=== PATIENT | male | born 2000 | race Two or more races ===

== ENCOUNTER 2020-07-04 20:52 | Emergency (ER) | payer BC, MEDICAID, OTHER ==
[~2020-07-04] VITALS: Ht 188 cm; Wt 133.4 kg
[2020-07-04] MEDS ORDERED: ACETAMINOPHEN 500 MG TABLET PO ONE (22:00)
[2020-07-04] MEDS ORDERED: ONDANSETRON ODT 4 MG PO ONE (22:00)
[2020-07-04] MEDS ORDERED: ACETAMINOPHEN 500 MG TABLET ONE (22:21)
[2020-07-04] MEDS ORDERED: ONDANSETRON ODT 4 MG ONE (22:22)
[2020-07-04 22:23] LABS: ALBUMIN 3.6 g/dL (3.4-5.0); ANION GAP 5 mmol/L (5-15); CALCIUM 8.6 mg/dL (8.5-10.1); CHLORIDE 104 mmol/L (98-107); CREATININE 1.06 mg/dL (0.7-1.3)
--- NOTE | 2020-07-04 22:26 | NUR ---
PT MEDICATED PER EMAR. PT RESTING IN BED AND DENIED ANY WANTS OR NEEDS AT THIS TIME
--- NOTE | 2020-07-04 22:28 | NUR ---
PT MEDICATED PER EMAR. PT RESTING IN BED AND DENIED ANY WANTS OR NEEDS AT THIS TIME
[2020-07-04 22:37] LABS: BASOPHILS # (AUTO) 0.02 x10^3/uL (0-0.3); BASOPHILS % (AUTO) 0 % (0-1); EOSINOPHILS # (AUTO) 0.01 x10^3/uL (0-0.8); EOSINOPHILS % (AUTO) 0 % (1-7); LYMPHOCYTES # (AUTO) 0.99 x10^3/uL (1-6.1); LYMPHOCYTES % (AUTO) 20 % (22-44); MD NO; MEAN CORPUSCULAR HEMOGLOBIN 28.9 pg (27.5-34.5); MEAN CORPUSCULAR HGB CONC 32.8 g/dL (33.2-36.2); MONOCYTES # (AUTO) 0.35 x10^3/uL (0-1.4); MONOCYTES % (AUTO) 7 % (2-9); NEUTROPHILS # (AUTO) 3.63 x10^3/uL (1.8-8.0); NEUTROPHILS % (AUTO) 73 % (42-75); PLATELET COUNT 249 x10^3/uL (130-400)
[2020-07-04] MEDS ORDERED: AZITHROMYCIN 500 MG TABLET PO ONE (23:00)
[2020-07-04] MEDS ORDERED: AZITHROMYCIN 250 MG TABLET ONE (23:32)
[2020-07-04 23:53] VITALS: BP 133/74
== END 2020-07-05 03:58 | disposition home or self-care (01) ==
LOC: ED 07-05 03:55
DX: U07.1 COVID-19 (principal); J18.9 Pneumonia, unspecified organism
CPT/HCPCS: 36415; 71045; 80048; 82040; 83605; 84145; 85025; 87635; 99284; Q0162